=== PATIENT | female | born 1950 | race Caucasian/White ===

== ENCOUNTER 2016-11-12 06:29 | Day surgery (SDC) | payer MEDICARE, BC ==
[2016-11-12] MEDS ORDERED: Bupivacaine 0.5% 50 ML MDV ONE (06:57)
[2016-11-12] MEDS ORDERED: Lidocaine 1% with EPINEPHrine 1:100,000 50 ML MDV ONE (06:58)
[2016-11-12] MEDS ORDERED: Sodium Chloride 0.9% 1,000 ML IV SCH (07:30)
[2016-11-12] MEDS ORDERED: Propofol 200 MG/20 ML SDV ONE (07:41)
[2016-11-12] MEDS ORDERED: fentaNYL 100 MCG/2 ML SDV ONE (07:41)
[2016-11-12] MEDS ORDERED: Midazolam 1 MG/ML 2 ML SDV ONE (07:41)
[2016-11-12] MEDS ORDERED: Isosulfan Blue 5 ML SDV ONE (09:27)
--- NOTE | 2016-11-12 10:41 | NM ---
Lymphoscintigraphy HISTORY: Left forearm melanoma COMPARISON: None. Technique: 1.72 mCi of technetium 99 sulfur colloid was administered around the known melanoma of th e left forearm by patient's surgeon. FINDINGS: Melanoma images demonstrate what appears to be single lymph node uptake at the level of th e elbow.
[2016-11-12] MEDS ORDERED: Bacitracin Oint 1 GM U/D Packet ONE (12:36)
[2016-11-12] MEDS ORDERED: Acetaminophen/HYDROcodone 325-5 MG Tab PO ONE (13:50)
[2016-11-12] MEDS ORDERED: Morphine 2 MG/ML Syringe IVPUSH PRN (14:42)
[2016-11-12 15:34] VITALS: BP 122/79
--- NOTE | 2017-01-03 08:18 | OR ---
DATE OF PROCEDURE: 12/31/2016 PROCEDURE: 1. Excision of melanoma, left forearm. 2. Attempted sentinel node. ANESTHESIA: [place] block. PATHOLOGY: Left arm lesion. INDICATIONS: A 66-year-old female with a biopsy-proven melanoma with a reported depths of 2.1 mm requiring further evaluation. Risks, benefits, alternatives, and limitations, including but not limited to infection, bleeding, and false- positives and false-negatives were explained to the patient. They wished to proceed. PROCEDURE IN DETAIL: The patient was placed in supine position. The previous biopsy site was identified and an elliptical incision would be made around this with a greater than 1 cm margin. This was carried down with full thickness. The wound was then closed with 3-0 Vicryl and 4-0 Prolene interrupted running fashion. Prior to procedure, the patient was sent for lymphoscintigraphy to evaluate for lymph node uptake. This was noted to be at the level of the elbow. The lymph node was attempted to be identified and removed. During the procedure, the gamma probe did not show any evidence of uptake in the elbow area. This was also noted during a lateral incision made in the elbow to evaluate for possible lymph node. Unfortunately, there was also blue node uptake in the lymphatic channels, but no blue nodes could be identified. Multiple attempts were made to identify the node. Unfortunately, they were unable to be identified. The wound was then closed with 3-0 Vicryl and 4-0 Prolene interrupted running fashion. The patient tolerated the procedure well. Mann Hilario MD /[id number]
== END 2016-11-12 15:38 | disposition home or self-care (01) ==
LOC: JP.SDS 06:29
PROVIDERS: ATTEND Surgery
DX: C43.62 Malignant melanoma of left upper limb, including shoulder (principal)
CPT/HCPCS: 25075; 38500; 78195; 88305; A9270; A9541; J2250; J2270; J2704; J3010; J7040; Q9968

== ENCOUNTER 2017-12-07 06:24 | Day surgery (SDC) | payer MEDICARE, BC ==
[2017-12-07] MEDS ORDERED: Lactated Ringers 1,000 ML IV SCH (06:30)
[2017-12-07] MEDS ORDERED: Propofol 200 MG/20 ML SDV ONE (07:23)
[2017-12-07] MEDS ORDERED: fentaNYL 100 MCG/2 ML SDV ONE (07:23)
[2017-12-07] MEDS ORDERED: Midazolam 1 MG/ML 2 ML SDV ONE (07:23)
[2017-12-07] MEDS ORDERED: Ondansetron 4 MG/2 ML SDV ONE (07:30)
[2017-12-07 09:21] VITALS: BP 134/87
--- NOTE | 2017-12-07 10:27 | OR ---
DATE OF PROCEDURE: 12/07/2017 PREOPERATIVE DIAGNOSES: 1. Colon cancer screening. 2. History of polyps. POSTOPERATIVE DIAGNOSES: Diverticulosis, small cecal polyp, history of polyps. PROCEDURE: Colonoscopy to the cecum with biopsy resection of small cecal polyp. SENIOR SOFTWARE DEVELOPER: Jagjit Wise MS-3. ANESTHESIA: IV anesthesia with monitored anesthesia care. INDICATION: This 67-year-old white female is here for a colonoscopy. She says her last colonoscopic exam was done about 14 years ago. She says at that point she had polyps which were not precancerous. I counseled her for a colonoscopy with possible biopsy and/or polypectomy including risks and alternatives, and she gave her informed consent to proceed. DESCRIPTION OF PROCEDURE: The patient was placed in the left lateral decubitus position. IV anesthesia was administered by the Anesthesia Service. Time-out was held. A rectal exam was performed, which was unremarkable. The flexible video Olympus colonoscope was introduced through her anus, up her rectum, and out her colon all way to the cecum. En route, we saw several left-sided diverticula. There was no bleeding or inflammation associated with them. In the cecum, we saw a small polyp with adjacent to the appendiceal orifice which was removed with the biopsy forceps. The scope was then slowly withdrawn with no new additional lesions or abnormalities noted. The scope was retroflexed in the rectum with the distal rectum appearing unremarkable. The scope was straightened and removed. She tolerated the procedure well. Salvatore Moser MD /[id number]
== END 2017-12-07 09:41 | disposition home or self-care (01) ==
LOC: JP.SDS 06:24
PROVIDERS: ATTEND Surgery
DX: Z12.11 Encounter for screening for malignant neoplasm of colon (principal); D12.0 Benign neoplasm of cecum; K57.30 Diverticulosis of large intestine without perforation or abscess without bleeding; K21.9 Gastro-esophageal reflux disease without esophagitis; E03.9 Hypothyroidism, unspecified; E66.9 Obesity, unspecified; Z86.010 Personal history of colon polyps; Z88.1 Allergy status to other antibiotic agents; Z88.8 Allergy status to other drugs, medicaments and biological substances
CPT/HCPCS: 88305; J2250; J2405; J2704; J3010; J7120

== ENCOUNTER 2022-01-28 07:06 | Day surgery (SDC) | payer MEDICARE ==
[~2022-01-28 07:06] MED LIST: Midazolam 1 MG/ML 2 ML SDV ONE; Propofol 200 MG/20 ML SDV ONE; fentaNYL 100 MCG/2 ML SDV ONE
[2022-01-28] MEDS ORDERED: Dextrose 5%-Lactated Ringers 1,000 ML IV SCH (08:15)
[2022-01-28 10:35] VITALS: BP 126/86; PULSE 67
== END 2022-01-28 10:46 | disposition home or self-care (01) ==
LOC: JP.SDS 07:06
PROVIDERS: ATTEND Surgery
DX: K64.8 Other hemorrhoids (principal); K44.9 Diaphragmatic hernia without obstruction or gangrene; K21.00 Gastro-esophageal reflux disease with esophagitis, without bleeding; K29.60 Other gastritis without bleeding; K86.89 Other specified diseases of pancreas; I10 Essential (primary) hypertension
CPT/HCPCS: 87081; J2250; J2704; J3010; J7121

== ENCOUNTER 2023-02-16 06:16 | Day surgery (SDC) | payer MEDICARE ==
[2023-02-16] MEDS ORDERED: Bupivacaine 0.5% 30 ML SDV ONE (06:41)
[2023-02-16] MEDS ORDERED: Midazolam 1 MG/ML 2 ML SDV ONE (07:08)
[2023-02-16] MEDS ORDERED: fentaNYL 100 MCG/2 ML SDV ONE (07:08)
[2023-02-16] MEDS ORDERED: Propofol 200 MG/20 ML SDV ONE (07:08)
[2023-02-16] MEDS ORDERED: Lidocaine 0.5% 50 ML SDV ONE (07:09)
[2023-02-16] MEDS ORDERED: Lactated Ringers 1,000 ML IV SCH (07:30)
[2023-02-16] MEDS ORDERED: Nozin Nasal Sanitizer NASBOTH ONE (07:30)
[2023-02-16] MEDS ORDERED: ceFAZolin 1 GM in Premix Bag 1 BAG IV ONE (08:00)
[2023-02-16] MEDS ORDERED: Ondansetron 4 MG/2 ML SDV IVPUSH ONE (09:45)
[2023-02-16 12:25] VITALS: BP 123/58; PULSE 55
== END 2023-02-16 11:00 | disposition home or self-care (01) ==
LOC: JP.SDS 06:16
PROVIDERS: ATTEND Specialist
DX: M65.331 Trigger finger, right middle finger (principal); M65.841 Other synovitis and tenosynovitis, right hand; I10 Essential (primary) hypertension; E78.00 Pure hypercholesterolemia, unspecified; E03.9 Hypothyroidism, unspecified; K21.9 Gastro-esophageal reflux disease without esophagitis; I25.10 Atherosclerotic heart disease of native coronary artery without angina pectoris; R74.8 Abnormal levels of other serum enzymes; Z88.1 Allergy status to other antibiotic agents; Z88.4 Allergy status to anesthetic agent; Z98.890 Other specified postprocedural states; Z88.8 Allergy status to other drugs, medicaments and biological substances; Z79.899 Other long term (current) drug therapy
CPT/HCPCS: 26055; 36415; 80048; 85027; A9270; J0690; J2250; J2405; J2704; J3010; J3490; J7120

== ENCOUNTER 2023-12-28 08:06 | Day surgery (SDC) | payer MEDICARE ==
[2023-12-28] MEDS: Lactated Ringers 1,000 ML IV SCH (08:21)
[2023-12-28] MEDS: Acetaminophen 500 MG Tab PO ONE (08:24)
[2023-12-28] MEDS: Bupivacaine 0.5% 50 ML MDV ONE (10:05)
[2023-12-28] MEDS: Lidocaine 1% with EPINEPHrine 1:100,000 50 ML MDV ONE (10:05)
[2023-12-28] MEDS: Bacitracin Oint 1 GM U/D Packet ONE (10:20)
[2023-12-28 12:08] VITALS: BP 123/74; PULSE 60
== END 2023-12-28 11:10 | disposition home or self-care (01) ==
LOC: JP.SDS 08:06
PROVIDERS: ATTEND Student in an Organized Health Care Education/Training Program
DX: C43.62 Malignant melanoma of left upper limb, including shoulder (principal); C77.9 Secondary and unspecified malignant neoplasm of lymph node, unspecified
CPT/HCPCS: 88305; 88341; 88342; 93005; 93010; A9270-GY; J0665; J7120

== ENCOUNTER 2025-09-23 06:42 | Day surgery (SDC) | payer MEDICARE ==
[2025-09-23] MEDS: Lactated Ringers 1,000 ML IV SCH (07:17)
[2025-09-23] MEDS ORDERED: Propofol 200 MG/20 ML SDV ONE (07:33)
[2025-09-23] MEDS ORDERED: Ondansetron 4 MG/2 ML SDV ONE (07:33)
[2025-09-23] MEDS ORDERED: fentaNYL 50 MCG/ML SDV ONE (07:33)
[2025-09-23 09:00] VITALS: PULSE 53
[2025-09-23 09:05] VITALS: BP 141/73
== END 2025-09-23 09:15 | disposition home or self-care (01) ==
LOC: JP.SDS 06:42
PROVIDERS: ATTEND Surgery
DX: R13.10 Dysphagia, unspecified (principal); K21.9 Gastro-esophageal reflux disease without esophagitis; B96.81 Helicobacter pylori [H. pylori] as the cause of diseases classified elsewhere; K44.9 Diaphragmatic hernia without obstruction or gangrene; K31.7 Polyp of stomach and duodenum; K25.9 Gastric ulcer, unspecified as acute or chronic, without hemorrhage or perforation; E03.9 Hypothyroidism, unspecified; I10 Essential (primary) hypertension; Z88.8 Allergy status to other drugs, medicaments and biological substances; Z91.09 Other allergy status, other than to drugs and biological substances; Z79.890 Hormone replacement therapy; Z79.899 Other long term (current) drug therapy
CPT/HCPCS: 00731; 43239; 87081; J2405; J2704; J3010; J7120